=== PATIENT | male | born 1950 | race Caucasian/White ===

== ENCOUNTER 2016-11-01 15:12 | Emergency (ER) | payer MEDICARE, OTHER ==
--- NOTE | 2016-11-01 15:18 | EDPHY ---
H & P HPI/ROS: CHIEF COMPLAINT: Psychiatric evaluation HISTORY OF PRESENT ILLNESS: The patient is a 65 y/o male, with a history of Alzheimer's and bipolar disorder, arriving from [facility] for psychiatric evaluation despite already being accepted to [facility] inpatient psychiatric facility. The RN contacted [facility] and they state he was transported here because he's manic and needs medication before being transferred to the [facility] facility. Per staff there he has not been receiving his Invega so they called 911 to transport him to the ED. [facility] was unable to provide any further details regarding patient's condition. The patient is unable to contribute information during assessment secondary to his mental health disorders, which is his reportedly his baseline. REVIEW OF SYSTEMS: Not obtainable secondary to patient's mental health disorders. Source: EMS, [facility] records Exam Limitations: Clinical condition - Medical/Surgical History PMH: PMH includes: 1. Bipolar disorder 2. Alzheimer's disease - Social History Additional Social History: Lives at [facility] but has been accepted to [facility] psychiatric facility. No further information available. - Physical Exam Exam: General Appearance: Alert. Vital signs reviewed. Eyes: Pupils equal and round, no conjunctival injection, no discharge. Anicteric. ENT, Mouth: Dry lips, moist oral mucosa. Neck: No lymphadenopathy, supple. Respiratory: Lungs are clear to auscultation; no wheezes, rales, or rhonchi. Cardiovascular: Regular rate and rhythm; no murmur, rub, or gallop. Gastrointestinal: Abdomen is soft and nontender, no masses or organomegaly, bowel sounds normal. Skin: Warm and dry, no rashes on exposed skin, normal color. Back: Nontender to palpation over the thoracolumbar spine. No CVAT. Extremities: No lower extremity edema, no calf tenderness or swelling. Neurological: Alert. Follows some basic commands, disjointed pressured speech, unable to tell me his name or where he is or describe symptoms. Moving all four extremities easily and equally. Gait is normal. Psychiatric: Somewhat agitated. Nonsensical illogical speech, difficult to guide or redirect. Speech is fluent. Constitutional: Initial Vital Signs Temperature (C) 36.9 C 11/01/16 15:28 Heart Rate 74 11/01/16 15:28 Respiratory Rate 14 11/01/16 15:28 Blood Pressure 149/78 H 11/01/16 15:28 O2 Sat (%) 92 11/01/16 15:28 O2 Delivery Mode Room Air Allergies/Adverse Reactions: Penicillins Allergy (Verified 11/01/16 15:25) Home Medications: Medication Instructions Recorded Depakote 11/01/16 INVEGA 11/01/16 OLANZapine 11/01/16 Zyprexa 11/01/16 traZODone 11/01/16 Medical Decision Making ED Course/Re-evaluation: Events surrounding his arrival by ambulance for somewhat unclear. [facility] was reported that he has been accepted at [facility]. However, the transport team that arrived at the [facility] was unable to transport him at that time. Apparently he was felt to be too agitated and aggressive for them to continue to manage him at the [facility], hence he was transported to [facility] Emergency Department. All of this was discovered after several phone calls. We will attempt to contact the accepting physician at [facility] and arrange transport for the patient there. He is hemodynamically stable and does not express any complaints at this time. ED RN reached [facility] and they are aware of patient and awaiting his transport there. We have paged the accepting psychiatric physician to confirm we are able to transfer the patient there. 1610: Consulted with the [facility] psychiatric physician, Dr. Camacho. He states the patient was expected at [facility] for full a pre-psychiatric work up including lab work and he will require those labs prior to admission to their psychiatric facility. If we complete the labs here, patient can be admitted directly to their facility without going through the ED. Alternatively, patient can be transferred to [facility] to complete his work up. Since it will take some time to arrange transport, we will perform all the labs Dr. Camacho requested then admit the patient directly to the psychiatric facility. [phone] - [facility] Psychiatric Admission phone number. EMTALA form completed. Patient has been accepted at [facility]. Transportation has been arranged. It was requested that he be placed on a 72 hour hold and I have done this. I feel that he is a grave danger to himself. Differential Diagnosis: I considered a differential diagnosis that includes but is not limited to suicidality, homicidality, jael, depression, and psychosis. Based upon my evaluation he is manic. - Data Points Laboratory Results: Laboratory Results 11/01/16 16:25 11/01/16 16:25 11/01/16 11/01/16 16:25 16:25 WBC 4.45 10^3/uL 10^3/uL (3.80-9.50) RBC 3.81 10^6/uL L 10^6/uL (4.40-6.38) Hgb 12.7 g/dL L g/dL (13.7-17.5) Hct 38.6 % L % (40.0-51.0) MCV 101.3 fL H fL (81.5-99.8) MCH 33.3 pg pg (27.9-34.1) MCHC 32.9 g/dL g/dL (32.4-36.7) RDW 13.3 % % (11.5-15.2) Plt Count 101 10^3/uL L 10^3/uL (150-400) MPV 10.8 fL fL (8.7-11.7) Neut % (Auto) 35.3 % L % (39.3-74.2) Lymph % (Auto) 46.1 % H % (15.0-45.0) [place] % (Auto) 14.6 % H % (4.5-13.0) Eos % (Auto) 2.5 % % (0.6-7.6) Baso % (Auto) 1.3 % % (0.3-1.7) Nucleat RBC Rel Count 0.0 % % (0.0-0.2) Absolute Neuts (auto) 1.57 10^3/uL L 10^3/uL (1.70-6.50) Absolute Lymphs (auto) 2.05 10^3/uL 10^3/uL (1.00-3.00) Absolute Monos (auto) 0.65 10^3/uL 10^3/uL (0.30-0.80) Absolute Eos (auto) 0.11 10^3/uL 10^3/uL (0.03-0.40) Absolute Basos (auto) 0.06 10^3/uL 10^3/uL (0.02-0.10) Absolute Nucleated RBC 0.00 10^3/uL 10^3/uL (0-0.01) Immature Gran % 0.2 % % (0.0-1.1) Immature Gran # 0.01 10^3/uL 10^3/uL (0.00-0.10) Sodium 139 mEq/L mEq/L (134-144) Potassium 4.2 mEq/L mEq/L (3.5-5.2) Chloride 105 mEq/L mEq/L (97-110) Carbon Dioxide 22 mEq/l mEq/l (22-31) Anion Gap 12 mEq/L mEq/L (8-16) BUN 16 mg/dL mg/dL (7-23) Creatinine 0.9 mg/dL mg/dL (0.7-1.3) Estimated GFR > 60 Glucose 84 mg/dL mg/dL (70-100) Calcium 9.4 mg/dL mg/dL (8.5-10.4) Total Bilirubin 1.1 mg/dL mg/dL (0.1-1.4) Conjugated Bilirubin 0.5 mg/dL mg/dL (0.0-0.5) Unconjugated Bilirubin 0.6 mg/dL mg/dL (0.0-1.1) AST 63 IU/L H IU/L (17-59) ALT 66 IU/L IU/L (21-72) Alkaline Phosphatase 49 IU/L IU/L (38-126) Total Protein 8.0 g/dL g/dL (6.3-8.2) Albumin 4.3 g/dL g/dL (3.5-5.0) Triglycerides 63 mg/dL mg/dL (40-150) Cholesterol 115 mg/dL L mg/dL (140-220) Cholesterol Risk Factr 0.5 (0.2-1.0) LDL Cholesterol, Calc 66 mg/dL L mg/dL (80-100) LDL Risk Factor 0.8 (0.2-1.0) VLDL Cholesterol 12 mg/dL mg/dL (8-25) Non-HDL Cholesterol 78 mg/dL L mg/dL (90-129) HDL Cholesterol 37 mg/dL L mg/dL (40-65) LDL/HDL Ratio 1.78 RATIO RATIO (1.00-3.64) Cholesterol/HDL Ratio 3.11 RATIO RATIO (1.00-4.97) TSH 2.590 uIU/mL uIU/mL (0.465-4.680) Ethyl Alcohol < 10 mg/dL mg/dL (0-10) Departure - Departure Disposition: Other Psych, Not [place] Clinical Impression: Jael Condition: Good Instructions: Bipolar Disorder (ED) Referrals: Patient,NotPresent [Primary Care Provider] - As per Instructions Report Scribed for: Michelle Lucas Report Scribed by: Gudelia Cintron Date of Report: 11/01/16 Time of Report: 15:36 Physician Review and Approval Statement: 11/01/16 15:18 Portions of this note were transcribed by the medical scientific liaison. I, Dr. Michelle Lucas, personally performed the history, physical exam, and medical decision- making; and confirmed the accuracy of the information in the transcribed note.
[2016-11-01 15:36] VITALS: RESP 14; TEMP 98.4
[2016-11-01 16:37] LABS: % IMMATURE GRANULYOCYTES 0.2 % (0.0-1.1); ABSOLUTE IMMATURE GRANULOCYTES 0.01 10^3/uL (0.00-0.10); ADD DIFF? NO; ADD MORPH? NO; ADD SCAN? NO; ATYPICAL LYMPHOCYTE FLAG 20 (0-99); FRAGMENT RBC FLAG 0 (0-99); HEMATOCRIT 38.6 % (40.0-51.0); HEMOGLOBIN 12.7 g/dL (13.7-17.5); LEFT SHIFT FLG 0 (0-99); LIPEMIA HEMOLYSIS FLAG 80 (0-99); MEAN CELL HEMOGLOBIN 33.3 pg (27.9-34.1); MEAN CELL HEMOGLOBIN CONCENTR. 32.9 g/dL (32.4-36.7); MEAN CELL VOLUME 101.3 fL (81.5-99.8); MEAN PLATELET VOLUME 10.8 fL (8.7-11.7); PLATELET CLUMPS FLAG 0 (0-99); PLATELET COUNT 101 10^3/uL (150-400); RED BLOOD CELL COUNT 3.81 10^6/uL (4.40-6.38); RED CELL DISTRIBUTION WIDTH 13.3 % (11.5-15.2)
[2016-11-01 17:03] LABS: ALANINE AMINOTRANSFERASE 66 IU/L (21-72); ALBUMIN 4.3 g/dL (3.5-5.0); ALKALINE PHOSPHATASE 49 IU/L (38-126); ANION GAP 12 mEq/L (8-16); ASPARTATE AMINOTRANSFERASE 63 IU/L (17-59); BILIRUBIN,TOTAL 1.1 mg/dL (0.1-1.4); BILIRUBIN-CONJUGATED 0.5 mg/dL (0.0-0.5); BILIRUBIN-UNCONJUGATED 0.6 mg/dL (0.0-1.1); CALCIUM 9.4 mg/dL (8.5-10.4); CARBON DIOXIDE 22 mEq/l (22-31); CHLORIDE 105 mEq/L (97-110); CHOLESTEROL 115 mg/dL (140-220); CHOLESTEROL/HDL RATIO 3.11 RATIO (1.00-4.97); CREATININE 0.9 mg/dL (0.7-1.3); ETHANOL SERUM < 10 mg/dL (0-10); GLOMERULAR FILTRATION RATE > 60; GLUCOSE 84 mg/dL (70-100); HIGH DENSITY LIPOPROTEIN 37 mg/dL (40-65); LDL/HDL RATIO 1.78 RATIO (1.00-3.64); LOW DENSITY LIPOPROTEIN 66 mg/dL (80-100); NON-HIGH DENSITY LIPOPROTEIN 78 mg/dL (90-129); POTASSIUM 4.2 mEq/L (3.5-5.2); SODIUM 139 mEq/L (134-144); TRIGLYCERIDE 63 mg/dL (40-150); VERY LOW DENSITY LIPOPROTEINS 12 mg/dL (8-25)
[2016-11-01 18:44] VITALS: BP 135/77; PULSE 94; O2SAT 96
== END 2016-11-01 18:41 ==
LOC: EDUNIT#
DX: F30.9 Manic episode, unspecified (principal)
CPT/HCPCS: G0480

== ENCOUNTER 2017-07-19 16:29 | Emergency (ER) | payer OTHER, MEDICAID ==
--- NOTE | 2017-07-19 16:41 | EDPHY ---
Addendum entered and electronically signed by Cally De La Vega MD 07/20/17 18 :51: 1851: Patient is mildly agitated. He is given Zyprexa 10 mg orally. Original Note: H & P - Medical/Surgical History Hx Asthma: No Hx Chronic Respiratory Disease: No Hx Diabetes: No Hx Cardiac Disease: No Hx Renal Disease: No Hx Cirrhosis: No Hx Alcoholism: No Hx HIV/AIDS: No Hx Splenectomy or Spleen Trauma: No Other PMH: bipolar, alzheimers, HTN, - Social History Smoking Status: Never smoked Time Seen by Provider: 07/19/17 16:34 HPI/ROS: CHIEF COMPLAINT: "They won't let me go skiing " HISTORY OF PRESENT ILLNESS: 66-year-old male history of Alzheimer's dementia, bipolar disorder, arrives via ambulance from [facility] on an M1 hold. Information obtained from police as the patient is a non reliable historian given his history of dementia. When asked why he is in the emergency department he states that he is here because "they wont let me go skiing" . Police state that family members feel that he is currently on safe, has made statements of suicidality and homicidality and believe he needs to return to a specific psychiatric facility, [facility]. He was recently released from [place]. PRIMARY CARE PROVIDER: REVIEW OF SYSTEMS: A ten point review of systems was performed and is negative with the exception of the items mentioned in the HPI PAST MEDICAL & SURGICAL HISTORY: Bipolar disorder. Dementia. SOCIAL HISTORY:Currently living at [facility] PHYSICAL EXAM (Prior to examination, patient consented to physical exam, hands were washed and my usual and customary physical exam procedures followed) 1) GENERAL: Well-developed, well-nourished, alert and oriented. Appears to be in no acute distress. 2) HEAD: Normocephalic, atraumatic 3) HEENT: Pupils equal, round, reactive to light bilaterally. Sclera anicteric. 4) NECK: Full range of motion, no meningeal signs. 5) LUNGS: Clear auscultation bilaterally, no wheezes, no rhonchi, no retractions. 6) HEART: Regular rate and rhythm, no murmur, no heave, no gallop. 7) ABDOMEN: No guarding, no rebound, no focal tenderness, 8) MUSCULOSKELETAL: Moving all extremities, no focal areas of tenderness, no obvious trauma. No peripheral edema or discoloration. 9) BACK: No visual or palpable abnormality. 10) SKIN: No rash, no petechiae. 11) Psychiatric: Patient is oriented X 3, there is no agitation. DIFFERENTIAL DIAGNOSIS: In no particular include but limited to dementia, suicidal ideation, homicidal ideation (Niles,Matias Shena) Constitutional: Initial Vital Signs Temperature (C) 36.8 C 07/19/17 16:30 Heart Rate 80 07/19/17 16:30 Respiratory Rate 18 07/19/17 16:30 Blood Pressure 121/70 H 07/19/17 16:30 O2 Sat (%) 94 07/19/17 16:30 O2 Delivery Mode Room Air Allergies/Adverse Reactions: Penicillins Allergy (Verified 11/01/16 15:25) Home Medications: Medication Instructions Recorded Depakote 11/01/16 INVEGA 11/01/16 OLANZapine 11/01/16 Zyprexa 11/01/16 traZODone 11/01/16 Medical Decision Making ED Course/Re-evaluation: 500pm: Patient does not to me at change of shift. The patient is stable time of transfer care. I reviewed the patient's laboratory studies. He was mildly anemic. His chemistry panel is unremarkable. His tox screen was positive for benzodiazepines. 835pm: Patient is becoming slightly more agitated. The patient is given Zyprexa 10 mg orally. 940pm: The patient is still slightly agitated. He was given a repeat dose of Zyprexa 10 mg orally. 1000pm: The patient is signed out to Dr. Warner at change of shift. Patient is stable. (Cally De La Vega) 6:00 a.m.- Patient was sleeping for most of my shift after receiving a dose of Ativan 1 mg. He awoke just now and is agitated and moaning. We will medicate him with Ativan and Zyprexa. I anticipate at 7:00 a.m., the case will be signed out to the oncoming provider Dr. Lucas pending psychiatric placement. (Sepideh Warner) I assumed care of this patient from Dr. Warner at 7:00 a.m.. He has been accepted at [facility]. EMTALA form has been completed. Transfer is anticipated. (Michelle Lucas) 4:40 p.m.: Patient is currently on an M1 hold. Will obtain diagnostic studies. 5:00 p.m.: Care turned over to Dr. De La Vega (Matias Cage) Differential Diagnosis: My differential includes but is not limited to dementia, bipolar disorder, electrolyte abnormality, sugar abnormality, abuse (Cally De La Vega) - Data Points Laboratory Results: Laboratory Results 07/19/17 17:25 07/19/17 17:25 Medications Given: Discontinued Medications Lorazepam (Ativan) 1 mg PO EDNOW ONE Stop: 07/19/17 23:29 Last Admin: 07/19/17 23:32 Dose: 1 mg Lorazepam (Ativan) 1 mg PO EDNOW ONE Stop: 07/20/17 06:00 Last Admin: 07/20/17 06:03 Dose: 1 mg Lorazepam (Ativan) 1 mg PO EDNOW ONE Stop: 07/20/17 11:11 Last Admin: 07/20/17 11:15 Dose: 1 mg Olanzapine (Olanzapine) 10 mg PO ONCE ONE Stop: 07/19/17 20:36 Last Admin: 07/19/17 20:38 Dose: 10 mg Olanzapine (Zyprexa Zydis) 10 mg PO EDNOW ONE Stop: 07/19/17 21:45 Last Admin: 07/19/17 21:45 Dose: 10 mg Olanzapine (Zyprexa Zydis) 10 mg PO EDNOW ONE Stop: 07/20/17 05:59 Last Admin: 07/20/17 06:03 Dose: 10 mg Olanzapine (Zyprexa Zydis) 10 mg PO EDNOW ONE Stop: 07/20/17 18:53 Last Admin: 07/20/17 18:58 Dose: Not Given Departure - Departure Disposition: Other Psych, Not [place] Clinical Impression: Dementia Qualifiers: Dementia type: Alzheimer's disease Alzheimer's disease onset: unspecified onset Dementia behavioral disturbance: without behavioral disturbance Qualified Code(s): G30.9 - Alzheimer's disease, unspecified Bipolar disorder Qualifiers: Active/Remission status: currently active Current bipolar episode type: depressed Current episode severity: unspecified Qualified Code(s): F31.30 - Bipolar disorder, current episode depressed, mild or moderate severity, unspecified Condition: Fair Referrals: Patient,NotPresent [Primary Care Provider] - As per Instructions
[2017-07-19 17:29] LABS: PLATELET COUNT 128 10^3/uL (150-400)
[2017-07-19] MEDS ORDERED: OLANZapine DISINTEGR 10 MG TAB ONE ×2 (20:35→21:40)
[2017-07-19] MEDS ORDERED: OLANZapine 5 MG TAB PO ONE (20:35)
[2017-07-19] MEDS ORDERED: OLANZapine DISINTEGR 10 MG TAB PO ONE (21:44)
[2017-07-19] MEDS ORDERED: LORazepam 1 MG TAB PO ONE (23:28)
[2017-07-20] MEDS ORDERED: OLANZapine DISINTEGR 10 MG TAB PO ONE ×2 (05:58→18:52)
[2017-07-20] MEDS ORDERED: LORazepam 1 MG TAB PO ONE ×2 (05:59→11:10)
[2017-07-20] MEDS ORDERED: OLANZapine DISINTEGR 10 MG TAB ONE ×2 (06:00→18:52)
[2017-07-20] MEDS ORDERED: LORazepam 1 MG TAB ONE (06:00)
[2017-07-20 18:48] VITALS: BP 124/63; PULSE 95; RESP 18; TEMP 98.8; O2SAT 95
== END 2017-07-20 21:02 ==
LOC: EDUNIT#
DX: G30.9 Alzheimer's disease, unspecified (principal); F31.30 Bipolar disorder, current episode depressed, mild or moderate severity, unspecified; I10 Essential (primary) hypertension
CPT/HCPCS: 80305; G0480